=== PATIENT | male | born 1945 | race Caucasian/White ===

== ENCOUNTER 2018-02-25 09:31 | Outpatient (CLI) | payer MEDICARE, BC ==
--- NOTE | 2018-02-25 12:17 | MRI ---
MRI LUMBAR SPINE: CLINICAL HISTORY: Low back pain. Radiculopathy. FINDINGS: The conus medullaris terminates at the inferior L2 level and is low lying. No evidence of acute comp ression fracture. There are prominent endplate degenerative signal abnormalities of the inferior L3 and superior L4 vertebral bodies, with edema, compatible with modic type I degenerative endplate sign al alteration. There is grade I spondylolisthesis at L5-S1, with associated modic type I and II dege nerative signal alteration. Multilevel bilateral degenerative facet arthropathy is present throughou t the lumbar spine, mild to moderate in degree. At the imaged retroperitoneum, there is a partially imaged small T2 hyperintensity of the right kidne y, which may relate to a cyst, although it is not definitively characterized. L5-S1: No significant central canal stenosis. There is moderate right and moderate to severe left n eural foraminal stenosis due to the above described spondylolisthesis, as well as degenerative facet hypertrophy and osteophyte formation. A left L5 pars defect is present, and there is signal alterati on of the right pars, which also suggests a stress reaction. L4-L5: No significant central canal stenosis. There is mild bilateral neural foraminal narrowing, a s a result of degenerative facet hypertrophy and disk osteophyte formation. There is a small annular fissure of the central zone. L3-L4: Broad-based disk osteophyte with mild narrowing of the central canal. There is crowding of t he right subarticular zone and potential for impingement of the traversing right L4 nerve root. Mode rate bilateral neural foraminal narrowing is present. Moderate right and mild to moderate left degen erative facet hypertrophy. L2-L3: There is a right subarticular disk protrusion with impingement upon the traversing right L3 n erve root and moderate narrowing at the right aspect of the thecal sac. There is mild bilateral neur al foraminal narrowing. L1-L2: There is mild ventral effacement of the thecal sac due to disk bulge. Mild bilateral neural foraminal narrowing is present. IMPRESSION: 1. Multilevel degenerative findings throughout the lumbar spine. 2. There is a prominent sized right subarticular disk protrusion, at L2-3, directly impinging the ri ght L3 nerve root, within the right subarticular zone, and producing moderate narrowing of the right aspect of the thecal sac. 3. Spondylolisthesis at the L5-S1 level with associated pars defect. 4. Low lying conus medullaris. 5. Potential right renal cyst, although incompletely visualized. This may be further assessed with renal ultrasound. POS: ROBERT
== END 2018-02-25 09:32 | disposition home or self-care (01) ==
LOC: MRI 09:31
PROVIDERS: ATTEND Radiology Radiation Oncology
DX: M47.26 Other spondylosis with radiculopathy, lumbar region (principal); M54.5 Low back pain; M51.16 Intervertebral disc disorders with radiculopathy, lumbar region; M48.061 Spinal stenosis, lumbar region without neurogenic claudication; M43.17 Spondylolisthesis, lumbosacral region; N28.1 Cyst of kidney, acquired
CPT/HCPCS: 72148

== ENCOUNTER 2018-05-06 07:33 | Outpatient (CLI) | payer MEDICARE, BC ==
--- NOTE | 2018-05-06 09:05 | ULT ---
RENAL ULTRASOUND: HISTORY: Abnormal right renal lesion seen on MRI. COMPARISON: MRI lumbar spine from 02/25/2018. FINDINGS: The right kidney measures 10 x 4.5 x 5 cm. There is a 6 mm superior pole right renal cyst. The left kidney measures 9.9 x 4.7 x 4.9 cm. Post void urinary bladder volume residual is 6 mL. IMPRESSION: Corresponding to the MRI findings is a simple cyst of the right kidney. POS: ROBERT
== END 2018-05-06 07:34 | disposition home or self-care (01) ==
LOC: ULT 07:33
PROVIDERS: ATTEND Radiology Radiation Oncology
DX: N28.9 Disorder of kidney and ureter, unspecified (principal); N28.1 Cyst of kidney, acquired
CPT/HCPCS: 76770